=== PATIENT | male | born 1945 | race Caucasian/White ===

== ENCOUNTER 2016-11-07 11:32 | Day surgery (SDC) | END 2016-11-07 17:33 | disposition home or self-care (01) | DX: S86.011A Strain of right Achilles tendon, initial encounter (principal); X58.XXXA Exposure to other specified factors, initial encounter; Y93.31 Activity, mountain climbing, rock climbing and wall climbing; Y99.9 Unspecified external cause status; Y92.9 Unspecified place or not applicable | CPT/HCPCS: 27650; J0690; J1100; J2250; J2405; J2710; J2765; J2795; J3010; J7999 ==